=== PATIENT | female | born 1975 | race Two or more races ===

== ENCOUNTER 2020-12-10 07:30 | Inpatient (IN) | payer OTHER ==
[~2020-12-10] VITALS: Ht 167.6 cm; Wt 74.8 kg
[2020-12-10] MEDS ORDERED: SINGULAIR10 MG PO (08:48)
[2020-12-10] MEDS ORDERED: CLARITI PO (08:48)
[2020-12-17] MEDS ORDERED: BUDESONIDE-FO10.2 G1 (08:09)
[2020-12-17] MEDS ORDERED: LORATADINE10 MG (08:09)
[2020-12-17] MEDS ORDERED: CLOTRIMAZOLE-BE15 G1 (08:10)
== END 2020-12-19 10:59 | disposition home or self-care (01) | DRG 743 ==
LOC: SURG-SUITE 12-17 05:28 → O/R 12-17 05:28 → OB/GYN 12-17 07:00 → SURG-SUITE 12-17 10:17
PROVIDERS: ADMIT Obstetrics & Gynecology; ATTEND Obstetrics & Gynecology
PROC: 0UT00ZZ Resection of Right Ovary, Open Approach (ICD-10-PCS; 2020-12-17)
PROC: 0UT50ZZ Resection of Right Fallopian Tube, Open Approach (ICD-10-PCS; 2020-12-17)
PROC: 0UT90ZZ Resection of Uterus, Open Approach (ICD-10-PCS; principal; 2020-12-17 07:00)
DX: N72 Inflammatory disease of cervix uteri (principal); N80.0 Endometriosis of uterus; N83.10 Corpus luteum cyst of ovary, unspecified side; N83.299 Other ovarian cyst, unspecified side; D25.1 Intramural leiomyoma of uterus; D26.1 Other benign neoplasm of corpus uteri; D28.2 Benign neoplasm of uterine tubes and ligaments

== ENCOUNTER 2024-05-22 07:07 | Outpatient (CLI) | payer OTHER ==
[~2024-05-22 07:07] MED LIST: BUDESONIDE-FO10.2 G1; CLARITI PO; CLOTRIMAZOLE-BE15 G1; LORATADINE10 MG; SINGULAIR10 MG PO
== END 2024-05-22 07:17 | disposition home or self-care (01) ==
LOC: SONOGRAMA 07:07
PROVIDERS: ATTEND Internal Medicine Gastroenterology
DX: R10.32 Left lower quadrant pain (principal)

== ENCOUNTER 2024-06-13 10:07 | Outpatient (CLI) | payer OTHER | END 2024-06-13 10:08 | disposition home or self-care (01) | LOC: NUCLEAR 10:07 | PROVIDERS: ATTEND Internal Medicine Gastroenterology | DX: K81.1 Chronic cholecystitis (principal) ==

== ENCOUNTER 2024-12-06 08:40 | Outpatient (CLI) | payer OTHER | END 2024-12-06 08:53 | disposition home or self-care (01) | LOC: RAD 08:40 | PROVIDERS: ATTEND Physical Medicine & Rehabilitation Hospice and Palliative Medicine | DX: G56.02 Carpal tunnel syndrome, left upper limb (principal); M79.642 Pain in left hand ==

== ENCOUNTER 2025-05-08 09:59 | Emergency (ER) | payer OTHER ==
[~2025-05-08] VITALS: Ht 167.6 cm; Wt 77.1 kg
[2025-05-08] MEDS ORDERED: FAMOTIDINE/PF 20 MG/2 ML VIAL ONE (10:39)
[2025-05-08] MEDS ORDERED: PIPERACILLIN/TAZOBACTAM SODIUM 3.375 GM VIAL IV ONE ×2 (10:39→10:45)
[2025-05-08] MEDS ORDERED: FAMOTIDINE/PF 20 MG in 0.9 % SODIUM CHLORIDE 8 ML IV PUSH STA (10:40)
[2025-05-08] MEDS ORDERED: MORPHINE SULFATE 4 MG/ML VIAL IV ONE (10:45)
[2025-05-08 11:24] LABS: BASO % 0.6 % (0.1-1.2); EOS # 0.14 (0.04-0.54); EOS % 1.3 % (0.7-7.0); LYMPH # 1.78 (1.18-3.74); LYMPH % 16.2 % (19.3-53.1); MEAN PLATELET VOLUME 9.50 fl (9.4-12.4); MONO # 0.83 (0.24-0.82); MONO % 7.6 % (4.7-12.5); NEUT # 8.13 (1.56-6.13); NEUT % 74.0 % (34.0-71.1); RED CELL DISTRIBUTION WIDTH 12.7 % (11.6-14.4)
[2025-05-08 11:54] LABS: ALT/SGPT 19.0 U/L (12-78); AST/SGOT 16.0 U/L (15-37); BILIRUBIN TOTAL 0.45 mg/dL (0.3-1.2); BUN CREA RATIO 10.0 (7.0-25.0); CREATININE SERUM 0.8 mg/dL (0.55-1.02); GFR 75.32; GLOBULINA 4.3 G/DL (2.4-3.5); GLUCOSE FASTING 91.0 mg/dL (65-100); OSMOLALITY SERUM 279.0 MOSM/KG (275-295)
[2025-05-08 18:34] VITALS: BP 122/67; O2SAT 100
== END 2025-05-08 18:35 | disposition home or self-care (01) ==
LOC: ER 09:59
PROVIDERS: General Practice
DX: K57.32 Diverticulitis of large intestine without perforation or abscess without bleeding (principal); K80.20 Calculus of gallbladder without cholecystitis without obstruction; Z88.6 Allergy status to analgesic agent; Z88.8 Allergy status to other drugs, medicaments and biological substances; Z87.09 Personal history of other diseases of the respiratory system

== ENCOUNTER 2025-07-02 11:48 | Inpatient (IN) | payer OTHER ==
[~2025-07-02] VITALS: Ht 182.9 cm; Wt 78.0 kg
[2025-07-09] MEDS ORDERED: CEFTRIAXONE SODIUM 2,000 MG VIAL ONE (09:45)
[2025-07-09] MEDS ORDERED: METRONIDAZOLE/SODIUM CHLORIDE 500 MG/100 ML PIGGYBACK IV ONE ×2 (09:45→13:30)
[2025-07-09] MEDS ORDERED: SUGAMMADEX SODIUM 200 MG/2 ML VIAL IV ONE ×2 (12:44→13:45)
[2025-07-09] MEDS ORDERED: CEFTRIAXONE SODIUM 2,000 MG VIAL IV ONE (13:30)
[2025-07-09] MEDS ORDERED: BUPIVACAINE HCL 30 ML VIAL IJ ONE (13:30)
[2025-07-09] MEDS ORDERED: LIDOCAINE HCL 1%/EPINEPHRINE 20ML VIAL IJ ONE (13:45)
[2025-07-09] MEDS ORDERED: OxyCODONE HCL 5 MG TABLET (ROXICODONE) PO PRN (14:30)
[2025-07-09] MEDS ORDERED: MORPHINE SULFATE 4 MG/ML CARTRIDGE IV PRN (14:30)
[2025-07-09] MEDS ORDERED: ONDANSETRON HCL 2 MG/ML VIAL IV PRN (14:30)
[2025-07-09] MEDS ORDERED: RINGERS SOLUTION,LACTATED 1,000 ML IV SCH (14:30)
[2025-07-09] MEDS ORDERED: ONDANSETRON HCL 2 MG/ML VIAL IV ONE (14:35)
[2025-07-09] MEDS ORDERED: HYOSCYAMINE SULFATE 0.125 MG TAB.SUBL SL SCH (17:00)
[2025-07-09] MEDS ORDERED: METOCLOPRAMIDE HCL 5 MG/ML VIAL IV SCH (17:00)
[2025-07-09] MEDS ORDERED: GABAPENTIN 300 MG CAPSULE PO SCH (17:00)
[2025-07-09] MEDS ORDERED: ALBUTEROL SULFATE 3 ML/2.5 MG AMPUL.NEB IH SCH (18:00)
[2025-07-09] MEDS ORDERED: ACETAMINOPHEN 500 MG GEL..CAP PO SCH (20:00)
[2025-07-09 20:38] VITALS: BP 131/72; O2SAT 99
[2025-07-09 21:00] LABS: BASO % 0.1 % (0.1-1.2); EOS # 0.00 (0.04-0.54); EOS % 0.0 % (0.7-7.0); LYMPH # 0.46 (1.18-3.74); LYMPH % 2.8 % (19.3-53.1); MEAN PLATELET VOLUME 9.30 fl (9.4-12.4); MONO # 0.63 (0.24-0.82); MONO % 3.8 % (4.7-12.5); NEUT # 15.41 (1.56-6.13); NEUT % 92.9 % (34.0-71.1); RED CELL DISTRIBUTION WIDTH 12.2 % (11.6-14.4)
[2025-07-09] MEDS ORDERED: FAMOTIDINE/PF 20 MG/2 ML VIAL IV PUSH SCH (21:00)
[2025-07-09 21:41] LABS: BUN CREA RATIO 12.0 (7.0-25.0); CREATININE SERUM 0.6 mg/dL (0.55-1.02); GFR 104.98; GLUCOSE FASTING 118.0 mg/dL (65-100); OSMOLALITY SERUM 277.0 MOSM/KG (275-295)
[2025-07-10 00:53] VITALS: BP 128/75; O2SAT 98
[2025-07-10 07:55] LABS: BASO % 0.1 % (0.1-1.2); EOS # 0.00 (0.04-0.54); EOS % 0.0 % (0.7-7.0); LYMPH # 0.91 (1.18-3.74); LYMPH % 6.8 % (19.3-53.1); MEAN PLATELET VOLUME 9.20 fl (9.4-12.4); MONO # 0.93 (0.24-0.82); MONO % 7.0 % (4.7-12.5); NEUT # 11.45 (1.56-6.13); NEUT % 85.8 % (34.0-71.1); RED CELL DISTRIBUTION WIDTH 12.2 % (11.6-14.4)
[2025-07-10 08:00] VITALS: BP 149/82; O2SAT 99
[2025-07-10 08:57] LABS: BUN CREA RATIO 10.0 (7.0-25.0); CREATININE SERUM 0.7 mg/dL (0.55-1.02); GFR 87.87; GLUCOSE FASTING 115.0 mg/dL (65-100); OSMOLALITY SERUM 278.0 MOSM/KG (275-295)
[2025-07-10] MEDS ORDERED: LACTULOSE 20 G/30 ML BLIST.PACK PO SCH (09:00)
[2025-07-10] MEDS ORDERED: LACTOBACILLUS ACIDOPHILUS 1 CAP CAP PO SCH (09:00)
[2025-07-10 16:00] VITALS: BP 119/73; O2SAT 99
[2025-07-10] MEDS ORDERED: ENOXAPARIN SODIUM 40 MG/0.4 ML SYRINGE SUBCUTANEO SCH (17:00)
[2025-07-11 01:40] VITALS: BP 113/67; O2SAT 100
[2025-07-11 07:47] LABS: BASO % 0.3 % (0.1-1.2); EOS # 0.01 (0.04-0.54); EOS % 0.1 % (0.7-7.0); LYMPH # 1.65 (1.18-3.74); LYMPH % 14.5 % (19.3-53.1); MEAN PLATELET VOLUME 9.40 fl (9.4-12.4); MONO # 0.82 (0.24-0.82); MONO % 7.2 % (4.7-12.5); NEUT # 8.83 (1.56-6.13); NEUT % 77.6 % (34.0-71.1); RED CELL DISTRIBUTION WIDTH 12.6 % (11.6-14.4)
[2025-07-11 08:23] LABS: BUN CREA RATIO 7.0 (7.0-25.0); CREATININE SERUM 0.9 mg/dL (0.55-1.02); GFR 65.75; GLUCOSE FASTING 84.0 mg/dL (65-100); OSMOLALITY SERUM 282.0 MOSM/KG (275-295)
[2025-07-11 08:34] VITALS: BP 124/75; O2SAT 97
[2025-07-11] MEDS ORDERED: ENOXAPARIN SODIUM 40 MG/0.4 ML SYRINGE SUBCUTANEO SCH (09:00)
[2025-07-11] MEDS ORDERED: ALBUTEROL SULFATE 3 ML/2.5 MG AMPUL.NEB IH SCH (09:00)
[2025-07-11] MEDS ORDERED: POTASSIUM CHLORIDE 8 MEQ TABLET PO NR (12:00)
[2025-07-11] MEDS ORDERED: NAPH,MB-DB/K PH,MBDB 1 PKT PACKET PO NR (12:00)
== END 2025-07-11 16:34 | disposition home or self-care (01) | DRG 330 ==
LOC: SURH 07-09 08:56 → O/R 07-09 08:56 → SURH 07-09 11:00
PROVIDERS: ADMIT Colon & Rectal Surgery; ATTEND Colon & Rectal Surgery
PROC: 0DBP4ZZ Excision of Rectum, Percutaneous Endoscopic Approach (ICD-10-PCS; 2025-07-09)
PROC: 0DJD8ZZ Inspection of Lower Intestinal Tract, Via Natural or Artificial Opening Endoscopic (ICD-10-PCS; 2025-07-09)
PROC: 0DTN4ZZ Resection of Sigmoid Colon, Percutaneous Endoscopic Approach (ICD-10-PCS; principal; 2025-07-09 11:00)
PROC: 3E0F7GC Introduction of Other Therapeutic Substance into Respiratory Tract, Via Natural or Artificial Opening (ICD-10-PCS; 2025-07-10)
DX: K57.32 Diverticulitis of large intestine without perforation or abscess without bleeding (principal); K92.1 Melena; K66.0 Peritoneal adhesions (postprocedural) (postinfection); J45.20 Mild intermittent asthma, uncomplicated